=== PATIENT | male | born 1985 | race Caucasian/White ===

== ENCOUNTER 2019-03-15 17:29 | Emergency (ER) | payer BC ==
[2019-03-15] MEDS ORDERED: Doxycycline 100 MG Cap PO ONE (18:04)
--- NOTE | 2019-03-15 18:07 | EDM.PDOC ---
ED HPI GENERAL MEDICAL PROBLEM - General Chief Complaint: Skin Complaint Stated Complaint: FACIAL SWELLING Time Seen by Provider: 03/15/19 18:03 Source of Information: Reports: Patient History Limitations: Reports: No Limitations - History of Present Illness INITIAL COMMENTS - FREE TEXT/NARRATIVE: 33-year-old male presents to the ED with diffuse feeling of bogginess and mild pain throughout his bridge of nose and adjacent to the nose and facial issue under the eyes and over the maxillary sinuses. He states he was mostly on the left side last night but today it seems to be bilateral. He states he had a swelling between his eyes are bridge of his nose about 2 and half weeks ago which seemed to get better on its own with no without any drainage. Can't remember any pokes or scrapes to his face. He has no dental pain. States his face and head are now starting to hurt. States last any seem to have some pain in the inner aspect of his left naris. He is not putting any chemicals or lotions on his face. He works as a operations welder. Appreciated there seemed to be some bogginess and pain when he placed his welding helmet on for couple minutes today. No noted fever or chills. Onset: Gradual Onset Date: 03/14/19 (As noted swelling left side of nose and face yesterday and now is bilateral) Duration: Hour(s):, Getting Worse Location: Reports: Face (Over the bridge of his nose and both sides of his face adjacent to the nose in the butterfly distribution), Other (He has a mustache and he does feel that there is some swelling is upper lip in the midline. This is difficult to appreciate.) Quality: Reports: Ache, Burning, Other Severity: Moderate (Feels boggy and swollen) Improves with: Reports: None Worsens with: Reports: None Context: Denies: Activity Associated Symptoms: Reports: No Other Symptoms, Rash. Denies: Confusion, Chest Pain, Cough, cough w sputum, Diaphoresis, Fever/Chills, Headaches, Loss of Appetite, Malaise, Nausea/Vomiting, Seizure, Shortness of Breath, Syncope Treatments FOOT DOCTOR: Reports: Other (see below) (None.) Right Headache Pain Score (Numeric/FACES): 5 - Related Data Allergies Allergy/AdvReac Type Severity Reaction Status Date / Time No Known Allergies Allergy Verified 06/16/19 17:36 Home Meds: Home Meds Doxycycline [Vibramycin] 100 mg PO BID #20 cap 03/15/19 [Rx] Past Medical History - Past Surgical History Musculoskeletal Surgical History: Reports: Arthroscopic Knee Social & Family History - Tobacco Use Smoking Status *Q: Current Every Day Smoker Years of Tobacco use: 2 Packs/Tins Daily: 0.5 - Recreational Drug Use Recreational Drug Use: No - Living Situation & Occupation Occupation: Employed ED ROS GENERAL - Review of Systems Review Of Systems: See Below Constitutional: Reports: No Symptoms. Denies: Fever, Chills, Malaise, Weakness , Fatigue, Decreased Appetite, Weight Loss HEENT: Reports: Other (Rash mid face in a butterfly distribution over the nose and both malar eminences.). Denies: Dental Pain, Glasses Respiratory: Reports: No Symptoms Cardiovascular: Reports: No Symptoms Endocrine: Reports: No Symptoms GI/Abdominal: Reports: No Symptoms : Reports: No Symptoms Musculoskeletal: Reports: No Symptoms Skin: Reports: No Symptoms Neurological: Reports: No Symptoms Psychiatric: Reports: No Symptoms Hematologic/Lymphatic: Reports: No Symptoms Immunologic: Reports: No Symptoms ED EXAM, SKIN/RASH Exam: See Below Exam Limited By: No Limitations General Appearance: Alert, WD/WN, No Apparent Distress, Anxious (Mildly anxious. ) Eye Exam: Bilateral Eye: Normal Inspection Ears: Normal TMs Nose: Other (I could find no ulcerations or sores or pustules in either naris that could be the source of infection.) Throat/Mouth: Normal Inspection, Normal Lips, Normal Teeth, Normal Oropharynx, Other (No signs of any dental infection no gingivitis.) Head: Atraumatic, Normocephalic, Facial Swelling, Facial Tenderness (Bilateral to his nose on both sides of his face.). No: Sinus Tenderness Neck: Normal Inspection (Neither maxillary sinuses tender to palpation.), Supple , Non-Tender, Full Range of Motion. No: Lymphadenopathy (L), Lymphadenopathy (R ) Course - Vital Signs Last Recorded V/S: Last Vital Signs Temp 37.1 C 03/15/19 17:34 Pulse 96 03/15/19 17:34 Resp 17 03/15/19 17:34 BP 141/98 H 03/15/19 17:34 Pulse Ox 100 03/15/19 17:34 - Orders/Labs/Meds Meds: Medications Discontinued Medications Generic Name Dose Route Start Last Admin Trade Name Deysi PRN Reason Stop Dose Admin Doxycycline Hyclate 200 mg 03/15/19 18:04 03/15/19 18:10 Vibramycin PO 03/15/19 18:05 200 mg ONETIME ONE Administration - Radiology Interpretation Free Text/Narrative:: 33-year-old male presents to the ED with mild erythema and swelling in the malar eminences of both sides of his face in the butterfly distribution midface. The tissue is warm to palpation and mildly tender and he appears to be developing a mild cellulitis. The source of this infection is unclear. Her no open sores or pustules evident at this time. Patient states he did have a swelling on the bridge of his nose between his eyes about 2 and half weeks ago that seemed to clear up on its own. Suspect staph aureus cellulitis. Will treat with doxycycline 200 mg by mouth now. Then 100 mg twice a day for the next 10 days. He is to expect improvement over the next 72 hours if not he will return. Departure - Departure Time of Disposition: 18:04 Disposition: Home, Self-Care 01 Condition: Fair Clinical Impression: Cellulitis, face - Discharge Information *PRESCRIPTION DRUG MONITORING PROGRAM REVIEWED*: Not Applicable *COPY OF PRESCRIPTION DRUG MONITORING REPORT IN PATIENT JORDAN: Not Applicable Prescriptions: Doxycycline [Vibramycin] 100 mg PO BID #20 cap Instructions: Cellulitis, Adult, Neoy-in-Upgr Referrals: PCP,None [Primary Care Provider] - Forms: ED Department Discharge Additional Instructions: Evaluation the emergency room reveals diffuse erythematous and swelling along both sides of the nose and then across the facial cheeks. Exact cause of this is unclear. It appears that there is a low-grade infection likely staph aureus under the skin that is spreading to both sides of your nose. The source of this infection could've been started as long as 3 weeks ago such as a minor scratch or cut. No obvious other obvious sources for infection were identified on examination such as in the nose or dental infection. No signs of maxillary sinus infection. Emend is oral antibiotic doxycycline 200 mg first dose given in the ED tonight. He will then need oxygen 100 mg twice daily for the next 10 days starting tomorrow morning. These tablets should be taken with food or water and not with any calcium source. SPECT improvement in facial swelling and redness over the next 48-72 hours.
== END 2019-03-15 18:17 | disposition home or self-care (01) ==
LOC: JD.ED 17:29
DX: L03.211 Cellulitis of face (principal); F17.210 Nicotine dependence, cigarettes, uncomplicated
CPT/HCPCS: 99283; A9270